=== PATIENT | female | born 1950 | race Caucasian/White ===

== ENCOUNTER 2016-09-14 12:02 | Inpatient (IN) | payer MEDICARE, BC ==
--- NOTE | 2016-09-14 13:19 | ED ---
General Adult HPI - General Chief complaint: Recheck/Abnormal Lab/Rx Stated complaint: Med Withdraw Time Seen by Provider: 09/14/16 12:40 Source: patient, RN notes reviewed Mode of arrival: ambulatory Limitations: no limitations - History of Present Illness Initial comments: 66-year-old female presents emergency Department chief complaint of opiate addiction, suicidal thoughts. Patient states that she is addicted to OxyContin. Patient states she's been on for 6 years and was prescribed by pain management in [place]. Patient states that she took a random OxyContin that she found yesterday. She states she did start having withdrawal symptoms which included abdominal pain, cramping of the legs, vomiting. Patient states she feels that she cannot go through the withdrawal symptoms at home states that she does feel suicidal and depressed. Patient has no physical complaints at this time. Denies any chest pain or shortness breath. Patient denies fevers or chills. Patient states she has had some cold-like symptoms recently. - Related Data Home Medications Medication Instructions Recorded Confirmed Acetaminophen Tab [Tylenol Tab] 650 mg PO Q4H PRN 09/14/16 09/14/16 DULoxetine HCL [Cymbalta] 60 mg PO DAILY 09/14/16 09/14/16 FLUoxetine HCL [PROzac] 40 mg PO DAILY 09/14/16 09/14/16 Lisinopril-Hctz 20-25 mg 1 tab PO DAILY 09/14/16 09/14/16 [Zestoretic 20-25] Simvastatin [Zocor] 40 mg PO HS 09/14/16 09/14/16 Synthroid (Unknown Strength) 1 tab PO DAILY 09/14/16 09/14/16 Valsartan 320 mg PO DAILY 09/14/16 09/14/16 oxyCODONE ER [OxyCONTIN 15MG E.R] 15 mg PO QID 09/14/16 09/14/16 Allergies Allergy/AdvReac Type Severity Reaction Status Date / Time No Known Allergies Allergy Verified 09/14/16 12:25 Review of Systems ROS Statement: Those systems with pertinent positive or pertinent negative responses have been documented in the HPI. ROS Other: All systems not noted in ROS Statement are negative. Past Medical History Past Medical History: Hypertension, Thyroid Disorder Additional Past Medical History / Comment(s): chronic back pain depression History of Any Multi-Drug Resistant Organisms: None Reported Past Surgical History: Cholecystectomy, Joint Replacement Past Psychological History: Depression Smoking Status: Current every day smoker Past Alcohol Use History: None Reported Past Drug Use History: Opiates General Exam Limitations: no limitations General appearance: alert, in no apparent distress Head exam: Present: atraumatic, normocephalic, normal inspection Eye exam: Present: normal appearance, PERRL, EOMI. Absent: scleral icterus, conjunctival injection, periorbital swelling ENT exam: Present: normal exam, normal oropharynx, mucous membranes moist, TM's normal bilaterally, normal external ear exam Neck exam: Present: normal inspection, full ROM. Absent: tenderness, meningismus, lymphadenopathy Respiratory exam: Present: normal lung sounds bilaterally. Absent: respiratory distress, wheezes, rales, rhonchi, stridor Cardiovascular Exam: Present: regular rate, normal rhythm, normal heart sounds. Absent: systolic murmur, diastolic murmur, rubs, gallop, clicks GI/Abdominal exam: Present: soft, normal bowel sounds. Absent: distended, tenderness, guarding, rebound, rigid Neurological exam: Present: alert, oriented X3, CN II-XII intact Psychiatric exam: Present: depressed Skin exam: Present: warm, dry, intact, normal color. Absent: rash Course Vital Signs 09/14/16 12:05 Temperature 99.9 F H Pulse Rate 90 Respiratory 18 Rate Blood Pressure 167/82 O2 Sat by Pulse 100 Oximetry Medical Decision Making - Lab Data Result diagrams: 09/14/16 13:12 09/14/16 13:12 Lab Results 09/14/16 09/14/16 09/14/16 Range/Units 13:12 13:12 13:13 WBC 5.8 (3.8-10.6) k/uL RBC 5.22 (3.80-5.40) m/uL Hgb 15.8 (11.4-16.0) gm/dL Hct 49.5 H (34.0-46.0) % MCV 94.9 (80.0-100.0) fL MCH 30.3 (25.0-35.0) pg MCHC 31.9 (31.0-37.0) g/dL RDW 13.6 (11.5-15.5) % Plt Count 222 (150-450) k/uL Neutrophils % 58 % Lymphocytes % 32 % Monocytes % 6 % Eosinophils % 1 % Basophils % 1 % Neutrophils # 3.4 (1.3-7.7) k/uL Lymphocytes # 1.9 (1.0-4.8) k/uL Monocytes # 0.3 (0-1.0) k/uL Eosinophils # 0.0 (0-0.7) k/uL Basophils # 0.0 (0-0.2) k/uL Sodium 144 (137-145) mmol/L Potassium 3.6 (3.5-5.1) mmol/L Chloride 104 (98-107) mmol/L Carbon Dioxide 28 (22-30) mmol/L Anion Gap 12 mmol/L BUN 20 H (7-17) mg/dL Creatinine 1.05 H (0.52-1.04) mg/dL Est GFR (MDRD) Af Amer >60 (>60 ml/min/1.73 sqM) Est GFR (MDRD) Non-Af 52 (>60 ml/min/1.73 sqM) Glucose 86 (74-99) mg/dL Calcium 9.8 (8.4-10.2) mg/dL Total Bilirubin 0.8 (0.2-1.3) mg/dL AST 20 (14-36) U/L ALT 25 (9-52) U/L Alkaline Phosphatase 94 (38-126) U/L Total Protein 7.7 (6.3-8.2) g/dL Albumin 4.4 (3.5-5.0) g/dL Urine Color Yellow Urine Appearance Cloudy H (Clear) Urine pH 6.5 (5.0-8.0) Ur Specific [place] 1.022 (1.001-1.035) Urine Protein 1+ H (Negative) Urine Glucose (UA) Negative (Negative) Urine Ketones Trace H (Negative) Urine Blood Negative (Negative) Urine Nitrate Negative (Negative) Urine Bilirubin Negative (Negative) Urine Urobilinogen 2.0 (<2.0) mg/dL Ur Leukocyte Esterase Large H (Negative) Urine WBC 18 H (0-5) /hpf Ur Squamous Epith Cells 17 H (0-4) /hpf Urine Bacteria Rare H (None) /hpf Hyaline Casts 21 H (0-2) /lpf Urine Mucus Few H (None) /hpf Urine Opiates Screen Detected H (NotDetected) Ur Oxycodone Screen Detected H (NotDetected) Urine Methadone Screen Not Detected (NotDetected) Ur Propoxyphene Screen Not Detected (NotDetected) Acetaminophen <10.0 ug/mL Ur Barbiturates Screen Not Detected (NotDetected) U Tricyclic Antidepress Not Detected (NotDetected) Ur Phencyclidine Scrn Not Detected (NotDetected) Ur Amphetamines Screen Not Detected (NotDetected) U Methamphetamines Scrn Not Detected (NotDetected) U Benzodiazepines Scrn Detected H (NotDetected) Urine Cocaine Screen Not Detected (NotDetected) U Marijuana (THC) Screen Not Detected (NotDetected) Disposition Clinical Impression: Opiate addiction, Suicidal ideation Disposition: ADMITTED IP TO THIS HOSP Condition: Stable
[2016-09-14 13:24] LABS: Basophils % (A) 1 %; CH 30.1; CHCM 31.9; Eosinophils % (A) 1 %; HCT 49.5 % (34.0-46.0); HDW 2.22; HGB 15.8 gm/dL (11.4-16.0); Luc # (Auto) 0.17; Luc % (Auto) 3; Lymphocytes # (A) 1.9 k/uL (1.0-4.8); Lymphocytes % (A) 32 %; MCH 30.3 pg (25.0-35.0); MCHC 31.9 g/dL (31.0-37.0); MCV 94.9 fL (80.0-100.0); Mean Platelet Volume 7.2; Monocytes # (A) 0.3 k/uL (0-1.0); Monocytes % (A) 6 %; Neutrophils # (A) 3.4 k/uL (1.3-7.7); Neutrophils % (A) 58 %; RBC 5.22 m/uL (3.80-5.40); RDW 13.6 % (11.5-15.5); WBC 5.8 k/uL (3.8-10.6); WBC (Perox) 5.97
--- NOTE | 2016-09-14 13:31 | XR ---
EXAMINATION TYPE: XR chest 2V DATE OF EXAM: 09/14/2016 1:27 PM HISTORY: Drug withdrawal. REFERENCE: NONE. FINDINGS: There has been a previous rotator cuff repair on the right. There has been a previous kypho plasty of one of the lower dorsal vertebra. The lungs are mildly overinflated. There is a calcified granuloma in the right upper lobe. The lungs are otherwise clear. Pleural space are clear. Heart size is normal. IMPRESSION: 1. COPD. 2. EVIDENCE OF OLD GRANULOMATOUS CHANGE.
[2016-09-14 13:35] LABS: Appearance,Urine Cloudy (Clear); Bacteria,Urine Rare /hpf; Bilirubin,Urine Negative (Negative); Glucose,Urine (UA) Negative (Negative); Ketones,Urine Trace (Negative); Leukocyte Esterase,Urine Large (Negative); Mucus,Urine Few /hpf; Nitrite,Urine Negative (Negative); PH, Urine 6.5 (5.0-8.0); Particle Count 16842; Protein,Urine 1+ (Negative); Specific Gravity,Urine 1.022 (1.001-1.035); Squamous Epithelial Cell,Urine 17 /hpf (0-4); UA Billing (MACRO vs. MICRO) MICRO; WBC,Urine 18 /hpf (0-5)
[2016-09-14 13:42] LABS: ALT 25 U/L (9-52); AST 20 U/L (14-36); Acetaminophen <10.0 ug/mL; Alkaline Phosphatase 94 U/L (38-126); Anion Gap 12 mmol/L; Blood Urea Nitrogen 20 mg/dL (7-17); Calcium 9.8 mg/dL (8.4-10.2); Carbon Dioxide 28 mmol/L (22-30); Chloride 104 mmol/L (98-107); Glucose 86 mg/dL (74-99); Non-African American GFR(MDRD) 52 (>60 ml/min/1.73 sqM); Potassium 3.6 mmol/L (3.5-5.1); Sodium 144 mmol/L (137-145); Total Bilirubin 0.8 mg/dL (0.2-1.3); Total Protein 7.7 g/dL (6.3-8.2)
[2016-09-14] MEDS ORDERED: MAG HYDROX/AL HYDROX/SIMETH 30 ML CUP PO PRN (15:35)
[2016-09-14] MEDS ORDERED: MAGNESIUM HYDROXIDE 2,400 MG/10 ML CUP PO PRN (15:35)
[2016-09-14] MEDS ORDERED: DIPHENOX-ATROP 2.5-0.025 MG 1 EACH TAB PO PRN (15:41)
[2016-09-14 16:55] VITALS: BMI 33.4
[2016-09-14] MEDS: NICOTINE 14MG/24HR PATCH TRANSDERM SCH (17:47)
[2016-09-14] MEDS: cloNIDine HCL 0.2 MG TAB PO SCH ×2 (17:47→20:55)
[2016-09-14] MEDS ORDERED: INFLUENZA VACCINE (3YR+) 60 MCG/0.5 ML SYRINGE IM ONE (18:32)
[2016-09-14] MEDS: ATORVASTATIN 20 MG TAB PO SCH (20:55)
[2016-09-14] MEDS: ACETAMINOPHEN TAB 325 MG TAB PO PRN (20:56)
[2016-09-14] MEDS ORDERED: ONDANSETRON 4 MG TAB PO PRN (22:46)
[2016-09-14] MEDS: LORazepam 1 MG TAB PO PRN (23:52)
[2016-09-15] MEDS: LEVOTHYROXINE 137 MCG TAB PO SCH (06:31)
[2016-09-15] MEDS: LISINOPRIL-HCTZ 20-25 MG 1 EACH TAB PO SCH (09:19)
[2016-09-15] MEDS: PANTOPRAZOLE 40 MG TABLET PO SCH (09:19)
[2016-09-15] MEDS: cloNIDine HCL 0.2 MG TAB PO SCH (09:19)
[2016-09-15] MEDS: NICOTINE 14MG/24HR PATCH TRANSDERM SCH (09:19)
[2016-09-15 09:52] LABS: Basophils % (A) 1 %; CH 30.2; CHCM 31.7; Eosinophils % (A) 1 %; HCT 45.3 % (34.0-46.0); HDW 2.27; HGB 14.1 gm/dL (11.4-16.0); Luc # (Auto) 0.14; Luc % (Auto) 3; Lymphocytes # (A) 2.1 k/uL (1.0-4.8); Lymphocytes % (A) 36 %; MCH 29.7 pg (25.0-35.0); MCV 95.7 fL (80.0-100.0); Mean Platelet Volume 7.5; Monocytes # (A) 0.3 k/uL (0-1.0); Monocytes % (A) 6 %; Neutrophils # (A) 3.1 k/uL (1.3-7.7); Neutrophils % (A) 54 %; RBC 4.73 m/uL (3.80-5.40); RDW 13.5 % (11.5-15.5); WBC 5.6 k/uL (3.8-10.6); WBC (Perox) 5.52
[2016-09-15 10:07] LABS: ALT 34 U/L (9-52); AST 18 U/L (14-36); Alkaline Phosphatase 90 U/L (38-126); Anion Gap 11 mmol/L; Blood Urea Nitrogen 23 mg/dL (7-17); Calcium 9.8 mg/dL (8.4-10.2); Carbon Dioxide 27 mmol/L (22-30); Chloride 102 mmol/L (98-107); Glucose 107 mg/dL (74-99); Non-African American GFR(MDRD) 55 (>60 ml/min/1.73 sqM); Potassium 3.4 mmol/L (3.5-5.1); Sodium 140 mmol/L (137-145); Total Bilirubin 0.9 mg/dL (0.2-1.3); Total Protein 7.3 g/dL (6.3-8.2)
--- NOTE | 2016-09-15 13:09 | P.CONS ---
History of Present Illness - Reason for Consult Consult date: 09/15/16 Medical management Requesting physician: Ton Collins - Chief Complaint Feeling depressed - History of Present Illness This is a 66-year-old female with past medical history noted below who was currently admitted to the psychiatry unit for further evaluation and treatment of severe depression. Apparently patient has been struggling with chronic arthritis pain and was prescribed opiates over the years. She admits that she was getting dependent on the medicines and occasionally abuse in it. She is also known to have major depressive disorder and was getting more depressed for the past several days. She said that she had thoughts about ending her life but did not have a specific plan. She presented to the emergency room for further evaluation. I was asked to see her for medical management. Patient is doing a lot better today. She denies any suicidal thoughts at this time. She is being evaluated by psychiatry. Was noted to have a positive urinalysis in the emergency room awaiting urine culture. She does not have any significant urinary symptoms otherwise. Review of Systems Review of system: 14 points review of systems were obtained and were negative except to what were mentioned in the HPI. Past Medical History Past Medical History: Hypertension, Thyroid Disorder Additional Past Medical History / Comment(s): chronic back pain depression History of Any Multi-Drug Resistant Organisms: None Reported Past Surgical History: Cholecystectomy, Joint Replacement Past Anesthesia/Blood Transfusion Reactions: No Reported Reaction Past Psychological History: Depression Smoking Status: Current every day smoker Past Alcohol Use History: None Reported Past Drug Use History: Opiates Medications and Allergies Home Medications Medication Instructions Recorded Confirmed Type Acetaminophen Tab [Tylenol Tab] 650 mg PO Q4H PRN 09/14/16 09/14/16 History DULoxetine HCL [Cymbalta] 60 mg PO DAILY 09/14/16 09/14/16 History FLUoxetine HCL [PROzac] 40 mg PO DAILY 09/14/16 09/14/16 History Folic Acid 1 mg PO DAILY 09/14/16 09/14/16 History Hydroxychloroquine Sulfate 200 mg PO BID 09/14/16 09/14/16 History [Plaquenil] Levothyroxine Sodium [Synthroid] 137 mcg PO DAILY 09/14/16 09/14/16 History Lisinopril-Hctz 20-25 mg 1 tab PO DAILY 09/14/16 09/14/16 History [Zestoretic 20-25] Methotrexate Sodium (Pf) 0.6 ml INJ Q7D 09/14/16 09/14/16 History [Methotrexate 50 mg/2 ml Vial] Naloxegol Oxalate [Movantik] 25 mg PO DAILY 09/14/16 09/14/16 History Omeprazole [PriLOSEC] 40 mg PO DAILY 09/14/16 09/14/16 History Simvastatin [Zocor] 40 mg PO HS 09/14/16 09/14/16 History buPROPion HCL [Wellbutrin XL] 300 mg PO DAILY 09/14/16 09/14/16 History oxyCODONE ER [OxyCONTIN 15MG E.R] 15 mg PO Q8HR PRN 09/14/16 09/14/16 History Allergies Allergy/AdvReac Type Severity Reaction Status Date / Time No Known Allergies Allergy Verified 09/14/16 12:25 Physical Exam Vitals: Vital Signs Temp Pulse Pulse Resp BP BP Pulse Ox 09/15/16 06:50 97.5 F L 48 L 18 98/52 09/14/16 23:56 98.1 F 64 20 100/54 09/14/16 22:42 95/50 09/14/16 20:40 77 18 128/64 09/14/16 16:27 99.1 F 82 15 148/79 09/14/16 15:30 98.9 F 84 18 158/78 98 Intake and Output 09/14/16 09/15/16 09/15/16 22:59 06:59 14:59 Other: Weight 80.3 kg General: The patient is awake and alert, in no distress, and does not appear acutely ill. Eye: extra-ocular movements are intact; there is normal conjunctiva bilaterally. . Neck: The neck is supple, there is no tenderness or JVD. Cardiovascular: Normal S1-S2, no S3-S4, no murmurs. Respiratory: Lungs clear to auscultation bilaterally with no wheezes rhonchi or rales. Gastrointestinal: Abdomen is soft, nontender, nondistended, with no organomegaly. . Musculoskeletal: Normal ROM, no tenderness, There is no pedal edema. Neurological: There are no obvious motor or sensory deficits. Speech is normal. Skin: Skin is warm and dry and no rashes or lesions are noted. Results CBC & Chem 7: 09/15/16 09:38 09/15/16 09:38 Labs: Abnormal Lab Results - Last 24 Hours (Table) 09/15/16 Range/Units 09:38 Potassium 3.4 L (3.5-5.1) mmol/L BUN 23 H (7-17) mg/dL Glucose 107 H (74-99) mg/dL Assessment and Plan Plan: 1. Major depressive disorder with suicidal thoughts 2. Opiate dependence with abuse 3. Uncomplicated urinary tract infection: I would start the patient on Macrobid awaiting urine culture 4. Essential hypertension, blood pressure well-controlled 5. Hypothyroidism 6. Mixed hyperlipidemia Today, I reviewed her medication list and lab work results. Continue current regimen. Thank you very much for the consultation. I will continue to follow up on the patient on as needed basis
[2016-09-15] MEDS ORDERED: NITROFURANTOIN MONOHYD/M-CRYST 100 MG CAP PO SCH (13:15)
--- NOTE | 2016-09-15 15:32 | P.HP ---
Psychiatric H&P - . H&P Date: 09/15/16 History & Physical: IDENTIFYING DATA: She is a 66-year-old female who presented to unit voluntarily with depression, suicidal ideation and opiate withdrawal symptoms. HISTORY OF PRESENT ILLNESS: She moved from [place] to [place] in May 2016 to "start a new life". She describes a distant relationship with her . She does not wish to remain with him but expressed no interest in divorce. She has 2 sons who live in [place] and thought she could establish a new life in [place]. She has been prescribed oxycodone through a pain clinic in [place] for "at least" the last 7 years. She was unable to establish care with a provider in [place] who was willing to prescribe her oxycodone. In June and July she flew to [place] to obtain prescriptions. She was scheduled to go to [place] this month but thought that she could stop using oxycodone on her own. She last took oxycodone "couple days" prior to admission. She developed severe opiate withdrawal symptoms including sweating, restlessness, increasing backache, nausea and vomiting, insomnia, anxiety and increased depression. She became distressed when she started having thoughts of and suicide. She denied that she made a suicide attempt or gesture. She denied the use of other drugs to get high, help her sleep or change her mood. She denied the use of alcohol. On the Carpenter Depression Inventory her total score was 48 consistent with severe symptoms of depression. Her moderate to severe symptoms include sadness, pessimism, past failure, loss of pleasure, self dislike, self criticalness, suicidal thoughts or wishes (I would like to kill myself), crying , agitation, loss of interest, indecisiveness, worthlessness, loss of energy, changes in sleeping pattern (I sleep most of the day close friend, changes in appetite (I have no appetite at all), concentration difficulties, tiredness or fatigue and loss of interest in sex. She denied psychotic symptoms such as auditory, visual or tactile hallucinations. She denied obsessions or compulsions. She denied ideas of reference, thought insertion or thought broadcasting. PAST PSYCHIATRIC HISTORY: She was admitted to the [facility] psychiatric unit in 1983 for the treatment of depression and alcohol use disorder. She was discharged to a women's residential substance abuse program in [facility]. She's been treated for mental health issues since she was 16 years old. She stated that she has met with counselors "off and on" for most of her life. She's been treated with several antidepressants in the past including Prozac, Wellbutrin and duloxetine. She has had to suicidal attempts by overdose of prescription medications. PAST MEDICAL HISTORY: She has a history of chronic low back pain. ALLERGIES: NO KNOWN DRUG ALLERGIES. SUBSTANCE USE HISTORY: She began drinking when she was 20 years old. She believes that her alcohol use became a problem when she was 30 years old. She sought substance abuse treatment because her alcohol use was interfering with her ability to care of her young children. She received detoxification services at [facility] then attended a 90 day residential substance abuse treatment program for women in [facility]. She stated that she has not had a problem with alcohol since she left the program. She has used cocaine in the past but denied recent use of cocaine. She denied the use of heroin, methamphetamine or other drugs of abuse. She has never crushed and insufflated the oxycodone. She denied history of IV drug use. FAMILY PSYCHIATRIC/SUBSTANCE USE HISTORY: She is not aware of family history of either psychiatric or substance abuse problems. LEGAL HISTORY: She has no history of legal problems SOCIAL HISTORY: She was born in [place] to an intact family. Her father was an cadastral engineer and her mother was a psychiatric nurse. Because of her father's profession the family moved several times and lived in several states. She has 2 sisters. She's been 3 times. She has been to her current for 17 years. She has had 2 sons by her first marriage. Both her sons live in [place]. She has 2 grandchildren. She described a distant relationship with her ; "he is been my rose grader because of my back pain but over the years he's become more of a rose grader the ". She has held several jobs throughout her life most recently retiring from a job with the [employer]. MENTAL STATUS EXAM: She presented as a disheveled appearing elderly female who had a slow and unsteady gait. She walked with the aid of a walker. She maintained eye contact and attended to the interview. She had no distinguishing features or prominent physical abnormalities. She has a depressed facial expression. She was alert and oriented to person, place and time. She had psychomotor retardation but no abnormal movements. Her speech was spontaneous, slow with decreased rhythm and volume. Her affect was depressed and not reactive. She describes suicidal ideation or wishes. She did not describe a specific suicidal plan or intent. She denied homicidal ideation. She expressed depressive cognitions including hopelessness and helplessness. She denied obsessions, ruminations, phobias and ideas of reference. She did not express paranoid ideation or delusional thoughts. Her thinking was abstract and her associations were coherent and logical. She denied hallucinations and did not appear to responding to internal stimuli. Her her score on the Clinical Opiate Withdrawal Scale was 6 consistent with mild symptoms of opiate withdrawal. STRENGTHS: Stable income, supportive family, good response to prior treatment WEAKNESSES: Opiate dependence, opiate withdrawal, chronic low back pain. IMPRESSION: She is a 66-year-old female who presents with opiate withdrawal symptoms. She has history of chronic back pain and treatment with oxycodone. She also has severe symptoms of depression and history of a depressive disorder. She should best be treated on an inpatient basis with a combination of psychopharmacology and multimodal therapy. PRINCIPLE DIAGNOSIS: Opiate withdrawal, opiate use disorder, major depressive disorder recurrent severe without psychosis, rule out opiate induced mood disorder RECOMMENDATION: Continue psychiatric hospitalization for treatment of opiate withdrawal, suicidal ideation and depression. Decrease clonidine to 0.1 mg 3 times a day to reduce hypertension and lightheadedness. Discussed treatment with antidepressant when her acute opiate withdrawal symptoms jerrica. Encourage participation in therapeutic groups and activities. Evaluate clinical status response to treatment on a daily basis. Allergies Allergy/AdvReac Type Severity Reaction Status Date / Time No Known Allergies Allergy Verified 09/14/16 12:25 Vital Signs Temp 97.5 F L 09/15/16 06:50 Pulse 48 L 09/15/16 06:50 Resp 18 09/15/16 06:50 BP 98/52 09/15/16 06:50 Pulse Ox 98 09/14/16 15:30 Intake & Output 09/14/16 09/15/16 09/15/16 18:59 06:59 18:59 Weight 80.3 kg Laboratory Last Values WBC 5.6 k/uL (3.8-10.6) 09/15/16 09:38 RBC 4.73 m/uL (3.80-5.40) 09/15/16 09:38 Hgb 14.1 gm/dL (11.4-16.0) 09/15/16 09:38 Hct 45.3 % (34.0-46.0) 09/15/16 09:38 MCV 95.7 fL (80.0-100.0) 09/15/16 09:38 MCH 29.7 pg (25.0-35.0) 09/15/16 09:38 MCHC 31.0 g/dL (31.0-37.0) 09/15/16 09:38 RDW 13.5 % (11.5-15.5) 09/15/16 09:38 Plt Count 206 k/uL (150-450) 09/15/16 09:38 Neutrophils % 54 % 09/15/16 09:38 Lymphocytes % 36 % 09/15/16 09:38 Monocytes % 6 % 09/15/16 09:38 Eosinophils % 1 % 09/15/16 09:38 Basophils % 1 % 09/15/16 09:38 Neutrophils # 3.1 k/uL (1.3-7.7) 09/15/16 09:38 Lymphocytes # 2.1 k/uL (1.0-4.8) 09/15/16 09:38 Monocytes # 0.3 k/uL (0-1.0) 09/15/16 09:38 Eosinophils # 0.0 k/uL (0-0.7) 09/15/16 09:38 Basophils # 0.0 k/uL (0-0.2) 09/15/16 09:38 Sodium 144 mmol/L (137-145) 09/14/16 13:12 Potassium 3.6 mmol/L (3.5-5.1) 09/14/16 13:12 Chloride 104 mmol/L (98-107) 09/14/16 13:12 Carbon Dioxide 28 mmol/L (22-30) 09/14/16 13:12 Anion Gap 12 mmol/L 09/14/16 13:12 BUN 20 mg/dL (7-17) H 09/14/16 13:12 Creatinine 1.05 mg/dL (0.52-1.04) H 09/14/16 13:12 Est GFR (MDRD) Af Amer >60 (>60 ml/min/1.73 sqM) 09/14/16 13:12 Est GFR (MDRD) Non-Af 52 (>60 ml/min/1.73 sqM) 09/14/16 13:12 Glucose 86 mg/dL (74-99) 09/14/16 13:12 Calcium 9.8 mg/dL (8.4-10.2) 09/14/16 13:12 Total Bilirubin 0.8 mg/dL (0.2-1.3) 09/14/16 13:12 AST 20 U/L (14-36) 09/14/16 13:12 ALT 25 U/L (9-52) 09/14/16 13:12 Alkaline Phosphatase 94 U/L (38-126) 09/14/16 13:12 Total Protein 7.7 g/dL (6.3-8.2) 09/14/16 13:12 Albumin 4.4 g/dL (3.5-5.0) 09/14/16 13:12 Urine Color Yellow 09/14/16 13:13 Urine Appearance Cloudy (Clear) H 09/14/16 13:13 Urine pH 6.5 (5.0-8.0) 09/14/16 13:13 Ur Specific [place] 1.022 (1.001-1.035) 09/14/16 13:13 Urine Protein 1+ (Negative) H 09/14/16 13:13 Urine Glucose (UA) Negative (Negative) 09/14/16 13:13 Urine Ketones Trace (Negative) H 09/14/16 13:13 Urine Blood Negative (Negative) 09/14/16 13:13 Urine Nitrate Negative (Negative) 09/14/16 13:13 Urine Bilirubin Negative (Negative) 09/14/16 13:13 Urine Urobilinogen 2.0 mg/dL (<2.0) 09/14/16 13:13 Ur Leukocyte Esterase Large (Negative) H 09/14/16 13:13 Urine WBC 18 /hpf (0-5) H 09/14/16 13:13 Ur Squamous Epith Cells 17 /hpf (0-4) H 09/14/16 13:13 Urine Bacteria Rare /hpf (None) H 09/14/16 13:13 Hyaline Casts 21 /lpf (0-2) H 09/14/16 13:13 Urine Mucus Few /hpf (None) H 09/14/16 13:13 Urine Opiates Screen Detected (NotDetected) H 09/14/16 13:13 Ur Oxycodone Screen Detected (NotDetected) H 09/14/16 13:13 Urine Methadone Screen Not Detected (NotDetected) 09/14/16 13:13 Ur Propoxyphene Screen Not Detected (NotDetected) 09/14/16 13:13 Acetaminophen <10.0 ug/mL 09/14/16 13:12 Ur Barbiturates Screen Not Detected (NotDetected) 09/14/16 13:13 U Tricyclic Antidepress Not Detected (NotDetected) 09/14/16 13:13 Ur Phencyclidine Scrn Not Detected (NotDetected) 09/14/16 13:13 Ur Amphetamines Screen Not Detected (NotDetected) 09/14/16 13:13 U Methamphetamines Scrn Not Detected (NotDetected) 09/14/16 13:13 U Benzodiazepines Scrn Detected (NotDetected) H 09/14/16 13:13 Urine Cocaine Screen Not Detected (NotDetected) 09/14/16 13:13 U Marijuana (THC) Screen Not Detected (NotDetected) 09/14/16 13:13 09/15/16 10:23 09/15/16 15:27
[2016-09-15] MEDS: cloNIDine HCL 0.1 MG TAB PO SCH ×2 (16:08→21:16)
[2016-09-15] MEDS: ACETAMINOPHEN TAB 325 MG TAB PO PRN (18:30)
[2016-09-15] MEDS: LEVOFLOXACIN 250 MG TAB PO SCH (18:46)
[2016-09-15] MEDS: ATORVASTATIN 20 MG TAB PO SCH (21:15)
[2016-09-15] MEDS: HYDROXYCHLOROQUINE SULFATE 200 MG TAB PO SCH (21:16)
[2016-09-16] MEDS: LORazepam 1 MG TAB PO PRN (00:27)
[2016-09-16] MEDS: ACETAMINOPHEN TAB 325 MG TAB PO PRN (00:27)
[2016-09-16] MEDS: LEVOTHYROXINE 137 MCG TAB PO SCH (07:06)
[2016-09-16] MEDS: PANTOPRAZOLE 40 MG TABLET PO SCH (09:24)
[2016-09-16] MEDS: LEVOFLOXACIN 250 MG TAB PO SCH (09:24)
[2016-09-16] MEDS: HYDROXYCHLOROQUINE SULFATE 200 MG TAB PO SCH ×2 (09:24→21:39)
[2016-09-16] MEDS: NICOTINE 14MG/24HR PATCH TRANSDERM SCH (09:24)
[2016-09-16] MEDS: cloNIDine HCL 0.1 MG TAB PO SCH (09:25)
[2016-09-16] MEDS: LISINOPRIL-HCTZ 20-25 MG 1 EACH TAB PO SCH (09:25)
--- NOTE | 2016-09-16 14:24 | P.PN ---
Progress Note - Text SUBJECTIVE: She complained of increasing back pain. She denied opiate withdrawal symptoms. She spoke with her and he told her he is "uncertain" if he wants her to home [place]. She talked about finding a physician in [place] with be willing to prescribe her pain medications. She believes that her decision decision to continue opiate pain medications is a matter of quality of life OBJECTIVE: She presented as a disheveled-appearing 66-year-old woman who looked older than her stated age. She is walking slowly with the aid of a wheeled walker. She made eye contact and attended to the interview. She had a blunted but bright facial expression. She was alert and oriented to person, place and time. She has slight psychomotor retardation but no abnormal movements. Her gait was slow but steady. Her speech was spontaneous with slight decrease in rate, rhythm and volume. Her affect was dysphoric but appropriate. She denied suicidal ideation or wishes. She did not expressed depressive cognitions such as hopelessness, helplessness or worthlessness. She denied ideas of reference did not express paranoid ideation. Her thinking was abstract and associations were coherent and organized. She denied hallucinations and did not appear to be responding to internal stimuli. ASSESSMENT: She is denying current opiate withdrawal symptoms. She is complaining of increased back pain and appears to have decided to find a physician to resume opiate pain medications. PLAN: Discontinue clonidine, there does not appear indication to start antidepressant at this time, encourage participation in therapeutic groups and activities, evaluate clinical status response to treatment daily basis.
[2016-09-16] MEDS: ATORVASTATIN 20 MG TAB PO SCH (21:39)
[2016-09-17] MEDS: ACETAMINOPHEN TAB 325 MG TAB PO PRN ×3 (01:18→22:28)
[2016-09-17] MEDS: LORazepam 1 MG TAB PO PRN ×3 (01:27→08:48)
[2016-09-17] MEDS: LISINOPRIL-HCTZ 20-25 MG 1 EACH TAB PO SCH (08:40)
[2016-09-17] MEDS: LEVOFLOXACIN 250 MG TAB PO SCH (08:40)
[2016-09-17] MEDS: HYDROXYCHLOROQUINE SULFATE 200 MG TAB PO SCH ×2 (08:40→20:40)
[2016-09-17] MEDS: LEVOTHYROXINE 137 MCG TAB PO SCH (08:40)
[2016-09-17] MEDS: PANTOPRAZOLE 40 MG TABLET PO SCH (08:42)
[2016-09-17] MEDS: NICOTINE 14MG/24HR PATCH TRANSDERM SCH (08:42)
[2016-09-17] MEDS: buPROPion SR 150 MG TABLET.ER PO SCH (13:12)
--- NOTE | 2016-09-17 13:43 | P.PN ---
Progress Note - Text SUBJECTIVE: Mr. Laguna complained of feeling depressed but denied having thoughts of or suicide. She regrets that she will not return to [place] to live with her and talked about their distant and a strange relationship. She is concerned that even though her sons are very supportive she does not have friends in [place]. She has not decided to resume narcotic pain medicines after she leaves the hospital -"If the pain is tolerable that I' ll try without." She described increasing joint aches and restlessness after we discontinued clonidine. However, she denies that she had an increase in her back pain. She rated her pain as a 4 on a 10 point Likert scale. We reviewed her experience with antidepressant medications. She believes that she did best when she was taking bupropion. She also consented to a trial of Seroquel at nighttime for sleep. OBJECTIVE: She presented as a disheveled appearing elderly woman who looked older than his stated age. She walks slowly with a wheeled walker. She was alert and oriented to person, place and time. She made eye contact and attended to the interview. Her speech was spontaneous with normal rate, rhythm and volume. Her affect was depressed but appropriate and reactive. She denied suicidal ideation or wishes. She expresses feelings of hopelessness but denied helplessness or worthlessness. She obsessed over her pain, lack of friends and dissolution of her marriage. She did not express ideas reference or paranoid ideation. She was not experiencing auditory, visual or tactile hallucinations. Her pulses morning was 89. She was not sweating, restlessness or complained of bone or joint aching, runny nose, GI upset or increased irritability. She had no tremor and no evidence of piloerection. ASSESSMENT: There is no current evidence of opiate withdrawal. She has signs and symptoms of depression and may benefit from an antidepressant medication. She is having moderate pain and is not requesting a prescription for opiate pain medication. PLAN: Begin bupropion SR 150 mg daily with titration according to tolerance and clinical effect, Seroquel 50 mg at bedtime for sleep, continue other medications as prescribed (see MAR), evaluate clinical status and response to treatment daily basis, refer to [facility] for continued treatment (depending on whether she most of all [place] who remains in [facility]).
[2016-09-17] MEDS: ATORVASTATIN 20 MG TAB PO SCH (20:39)
[2016-09-17 20:40] VITALS: RESP 16
[2016-09-17] MEDS ORDERED: QUEtiapine 50 MG TAB PO SCH (21:00)
[2016-09-18 06:37] VITALS: BP 124/60; PULSE 63; TEMP 98.3
[2016-09-18] MEDS: NICOTINE 14MG/24HR PATCH TRANSDERM SCH (09:58)
[2016-09-18] MEDS: buPROPion SR 150 MG TABLET.ER PO SCH (09:59)
[2016-09-18] MEDS: LEVOTHYROXINE 137 MCG TAB PO SCH (09:59)
[2016-09-18] MEDS: LISINOPRIL-HCTZ 20-25 MG 1 EACH TAB PO SCH (09:59)
[2016-09-18] MEDS: LEVOFLOXACIN 250 MG TAB PO SCH (09:59)
[2016-09-18] MEDS: HYDROXYCHLOROQUINE SULFATE 200 MG TAB PO SCH (09:59)
[2016-09-18] MEDS: PANTOPRAZOLE 40 MG TABLET PO SCH (09:59)
--- NOTE | 2016-09-18 13:04 | P.DS ---
Providers Date of admission: 09/14/16 15:25 Attending physician: Ton Collins MD Consults: 09/14/16 15:35 Consult Physician Routine Consulting Provider: Adrian Urban Consult Reason/Comments: H and P and medical management Do you want consulting provider notified?: Yes Primary care physician: Angela Gillis - Discharge Diagnosis(es) (1) Opiate withdrawal Current Visit: Yes Status: Resolved Priority: Low (2) Depressive disorder due to another medical condition with depressive features Current Visit: Yes Status: Chronic Priority: Medium (3) Chronic back pain Current Visit: Yes Status: Chronic Priority: High Hospital Course: She is a 66-year-old female who presented to unit voluntarily with depression, suicidal ideation and opiate withdrawal symptoms. She moved from [place] to [place] in May 2016 to "start a new life". She describes a distant relationship with her . She does not wish to remain with him but expressed no interest in divorce. She has 2 sons who live in [place] and thought she could establish a new life in [place]. She has been prescribed oxycodone through a pain clinic in [place] for "at least" the last 7 years. She was unable to establish care with a provider in [place] who was willing to prescribe her oxycodone. In June and July she flew to [place] to obtain prescriptions. She was scheduled to go to [place] this month but thought that she could stop using oxycodone on her own. She last took oxycodone "couple days" prior to admission. She developed severe opiate withdrawal symptoms including sweating, restlessness, increasing backache, nausea and vomiting, insomnia, anxiety and increased depression. She became distressed when she started having thoughts of and suicide. She denied that she made a suicide attempt or gesture. She denied the use of other drugs to get high, help her sleep or change her mood. She denied the use of alcohol. On the Carpenter Depression Inventory her total score was 48 consistent with severe symptoms of depression. Her moderate to severe symptoms include sadness, pessimism, past failure, loss of pleasure, self dislike, self criticalness, suicidal thoughts or wishes (I would like to kill myself), crying , agitation, loss of interest, indecisiveness, worthlessness, loss of energy, changes in sleeping pattern (I sleep most of the day close friend, changes in appetite (I have no appetite at all), concentration difficulties, tiredness or fatigue and loss of interest in sex. She denied psychotic symptoms such as auditory, visual or tactile hallucinations. She denied obsessions or compulsions. She denied ideas of reference, thought insertion or thought broadcasting. Ba was admitted to the [facility] psychiatric unit in 1983 for the treatment of depression and alcohol use disorder. She was discharged to a women 's residential substance abuse program in [facility]. She's been treated for mental health issues since she was 16 years old. She stated that she has met with counselors "off and on" for most of her life. She's been treated with several antidepressants in the past including Prozac, Wellbutrin and duloxetine. She has had to suicidal attempts by overdose of prescription medications. She began drinking when she was 20 years old. She believes that her alcohol use became a problem when she was 30 years old. She sought substance abuse treatment because her alcohol use was interfering with her ability to care of her young children. She received detoxification services at [facility] then attended a 90 day residential substance abuse treatment program for women in [facility]. She stated that she has not had a problem with alcohol since she left the program. She has used cocaine in the past but denied recent use of cocaine. She denied the use of heroin, methamphetamine or other drugs of abuse. She has never crushed and insufflated the oxycodone. She denied history of IV drug use. Hospital Course: We admitted her to the psychiatric unit under the care of this typewriter repairer. We provided a biopsychosocial assessment. The income tax consultant district plant supervisor completed the initial physical exam and medical history. The income tax consultant's impression was opiate dependence with abuse, urinary tract infection, essential hypertension, hypothyroidism and mixed hyperlipidemia. He continued her outpatient medications including Lipitor 20 mg at bedtime, levothyroxine 137 g a.m., lisinopril- HCTZ 20-25 daily and Protonix 40 mg before meals breakfast. She developed suicidal ideation and she was attempting to self detox herself from oxycodone. She had moderately severe opiate withdrawal symptoms on presentation. We treated her opiate withdrawal symptomatically with clonidine, Zofran and Lomotil. She developed hypotension with 0.2 mg of clonidine 3 times a day. We gradually lower the dose of clonidine. She tolerated the detoxification without complication. We discussed treatment of depression once her opiate withdrawal symptoms abated. She reported the best response to Wellbutrin. We started Wellbutrin SR 150 Mg daily and Seroquel 50 Mg at bedtime for sleep. When she was able to she participated in therapeutic groups and activities. She posed no management problem and demonstrated no behavioral dyscontrol. She spoke with her and decided his best she not return to [place]. She arranged to live with her son in [facility]. She is interested in outpatient mental health services and social work to arrange an appointment with [facility]. At the time of discharge she denied thoughts of or suicide. 10 Patient Condition at Discharge: Stable Plan - Discharge Summary New Discharge Prescriptions: Hydroxychloroquine Sulfate [Plaquenil] 200 mg PO BID 30 Days Levothyroxine Sodium [Synthroid] 137 mcg PO DAILY 30 Days Lisinopril-Hctz 20-25 mg [Zestoretic 20-25] 1 tab PO DAILY 30 Days Nicotine 14Mg/24Hr Patch [Habitrol] 1 patch TRANSDERM DAILY #7 patch Omeprazole [PriLOSEC] 40 mg PO DAILY 30 Days QUEtiapine [SEROquel] 50 mg PO HS 30 Days Simvastatin [Zocor] 40 mg PO HS #30 tab buPROPion SR [Wellbutrin SR] 150 mg PO DAILY 30 Days Discharge Medication List Acetaminophen Tab [Tylenol] 650 mg PO Q4H PRN 09/14/16 [History] Hydroxychloroquine Sulfate [Plaquenil] 200 mg PO BID 30 Days 09/18/16 [Rx] Levothyroxine Sodium [Synthroid] 137 mcg PO DAILY 30 Days 09/18/16 [Rx] Lisinopril-Hctz 20-25 mg [Zestoretic 20-25] 1 tab PO DAILY 30 Days 09/18/16 [Rx] Nicotine 14Mg/24Hr Patch [Habitrol] 1 patch TRANSDERM DAILY #7 patch 09/18/16 [ Rx] Omeprazole [PriLOSEC] 40 mg PO DAILY 30 Days 09/18/16 [Rx] QUEtiapine [SEROquel] 50 mg PO HS 30 Days 09/18/16 [Rx] Simvastatin [Zocor] 40 mg PO HS #30 tab 09/18/16 [Rx] buPROPion SR [Wellbutrin SR] 150 mg PO DAILY 30 Days 09/18/16 [Rx] Follow up Appointment(s)/Referral(s): [facility] [Outside] - 09/22/16 9:00 am (w/ Claudio Alston. Patient to arrive at 8:30am for paperwork.) Angela Gillis DO [Primary Care Provider] - 1-2 days Discharge Disposition: HOME SELF-CARE
== END 2016-09-18 15:38 | disposition home or self-care (01) | DRG 897 ==
LOC: EC 12:02 → 3MHU 15:25
PROVIDERS: ADMIT Psychiatry & Neurology Psychiatry; ATTEND Psychiatry & Neurology Psychiatry
DX: F11.23 Opioid dependence with withdrawal (principal); F33.2 Major depressive disorder, recurrent severe without psychotic features; R45.851 Suicidal ideations; I10 Essential (primary) hypertension; E03.9 Hypothyroidism, unspecified; E78.2 Mixed hyperlipidemia; F17.200 Nicotine dependence, unspecified, uncomplicated; F41.9 Anxiety disorder, unspecified; G47.00 Insomnia, unspecified; G89.29 Other chronic pain; M19.90 Unspecified osteoarthritis, unspecified site; Z79.899 Other long term (current) drug therapy
CPT/HCPCS: 36415; 71020; 80053; 80306; 81001; 82075; 83520; 84443; 85025; 87086; 90686; 99285